=== PATIENT | female | born 1975 | race Caucasian/White ===

== ENCOUNTER → 2019-11-27 10:17 | Outpatient (CLI) | payer OTHER, SELFPAY ==
[2019-11-28 09:33] LABS: COVID19 Sendout Not Detected (Not Detect)
== END ==
PROVIDERS: Visit Provider Physician Assistant
DX: Z03.818 Encounter for observation for suspected exposure to other biological agents ruled out (principal)
CPT/HCPCS: 87635

== ENCOUNTER → 2020-12-03 18:50 | Outpatient (CLI) | payer OTHER, SELFPAY ==
[2020-12-03 19:13] LABS: COVID19 -Nasal RAPID Negative (Negative)
== END ==
PROVIDERS: Referring Provider Nurse Practitioner Family; Visit Provider Nurse Practitioner Family
DX: Z20.822 Contact with and (suspected) exposure to COVID-19 (principal)
CPT/HCPCS: 87635

== ENCOUNTER → 2021-04-14 16:29 | Outpatient (CLI) | payer OTHER, SELFPAY ==
--- NOTE | 2021-04-14 16:37 | DI.RAD.S_ITS ---
PROCEDURE: XR FEMUR RT MIN 2V INDICATIONS: Injury TECHNIQUE: 2 views of the femur were acquired. COMPARISON: None. FINDINGS: Bones: No fractures or dislocations. No suspicious bony lesions. Soft tissues: No suspicious soft tissue calcifications or masses. IMPRESSION: No acute fracture. No osseous lesion. If symptoms and/or clinical suspicion for pathology persist, further assessment with repeat, or advanced imaging (e.g., CT, MRI, or bone scan) may be helpful for further assessment. Dictated by: Jairo Lake M.D. on 04/14/2021 at 17:01 Approved by: Jairo Lake M.D. on 04/14/2021 at 17:01
--- NOTE | 2021-04-14 16:37 | DI.RAD.S_ITS ---
PROCEDURE: XR KNEE RT 3V INDICATIONS: Injury TECHNIQUE: 3 views of the knee were acquired. COMPARISON: None. FINDINGS: Bones: No fractures or dislocations. No suspicious bony lesions. Soft tissues: No joint effusion. No suspicious soft tissue calcifications. IMPRESSION: No acute fracture. No osseous lesion. If symptoms and/or clinical suspicion for pathology persist, further assessment with repeat, or advanced imaging (e.g., CT, MRI, or bone scan) may be helpful for further assessment. Dictated by: Jairo Lake M.D. on 04/14/2021 at 17:01 Approved by: Jairo Lake M.D. on 04/14/2021 at 17:02
--- NOTE | 2021-04-14 16:37 | DI.RAD.S_ITS ---
PROCEDURE: XR TIBIA FUBULA RT 2V INDICATIONS: Injury TECHNIQUE: 2 views of the tibia and fibula were acquired. COMPARISON: None. FINDINGS: Bones: No fractures or dislocations. No suspicious bony lesions. Soft tissues: No suspicious soft tissue calcifications or masses. IMPRESSION: No acute fracture. No osseous lesion. If symptoms and/or clinical suspicion for pathology persist, further assessment with repeat, or advanced imaging (e.g., CT, MRI, or bone scan) may be helpful for further assessment. Dictated by: Jairo Lake M.D. on 04/14/2021 at 17:01 Approved by: Jairo Lake M.D. on 04/14/2021 at 17:01
== END ==
PROVIDERS: Referring Provider Student in an Organized Health Care Education/Training Program; Visit Provider Student in an Organized Health Care Education/Training Program
DX: S89.91XA Unspecified injury of right lower leg, initial encounter (principal); X58.XXXA Exposure to other specified factors, initial encounter
CPT/HCPCS: 73552; 73562; 73590

== ENCOUNTER → 2021-11-27 13:08 | Outpatient (CLI) | payer OTHER, SELFPAY ==
[2021-11-27 15:17] LABS: Add Manual Diff / Slide Review NO; Basophils Absolute Auto 0 /uL (0-100); Basophils Percent Auto 0.4 % (0-2); Eosinophils Absolute Auto 100 /uL (0-450); Eosinophils Percent Auto 1.3 % (2-4); Hematocrit 37.5 % (36-46); Hemoglobin 12.9 g/dL (12.0-16.0); Lymphocytes Absolute Auto 2700 /uL (1100-4500); Lymphocytes Percent Auto 36.4 % (25-40); Mean Corpuscular HGB Conc 34.3 % (30-36); Mean Corpuscular Hemoglobin 29.2 PG (26-34); Mean Corpuscular Volume 85.1 fL (80-100); Monocytes Absolute Auto 500 /uL (0-900); Neutrophils Absolute Auto 4100 /uL (1500-7000); Neutrophils Percent Auto 54.9 % (50-75); Platelet Count 318 X10^3/uL (150-400); Red Blood Cell Count 4.41 X10^6/uL (4.0-5.2); Red Cell Distribution Width 12.4 % (11.6-14.8); White Blood Cell Count 7.4 X10^3/uL (4.5-11.0)
[2021-11-27 15:39] LABS: Blood Urea Nitrogen 12 mg/dL (7-17); Calcium 8.9 mg/dL (8.4-10.2); Carbon Dioxide 26 mmol/L (22-32); Chloride 101 mmol/L (98-107); Estimated Glomerular Filt Rate > 60 mL/min (>60); Glucose 95 mg/dL (70-100); HEMOLYSIS < 15 (0-50); Sodium 137 mmol/L (137-145)
== END ==
PROVIDERS: PCP Registered Nurse; Referring Provider Orthopaedic Surgery; Visit Provider Orthopaedic Surgery
DX: Z01.818 Encounter for other preprocedural examination (principal); Z01.812 Encounter for preprocedural laboratory examination; M25.561 Pain in right knee
CPT/HCPCS: 36415; 80048; 85025; 93005

== ENCOUNTER → 2021-12-07 09:30 | Outpatient (CLI) | payer OTHER, SELFPAY ==
[2021-12-07 10:37] LABS: COVID19 -Nasal RAPID Negative (Negative)
== END ==
PROVIDERS: PCP Family Medicine; Referring Provider Orthopaedic Surgery; Visit Provider Orthopaedic Surgery
DX: Z20.822 Contact with and (suspected) exposure to COVID-19 (principal)
CPT/HCPCS: 87635; C9803

== ENCOUNTER → 2021-12-11 13:47 | Outpatient (CLI) | payer OTHER, SELFPAY ==
[2021-12-11 14:48] LABS: COVID19 -Nasal RAPID Negative (Negative)
== END ==
PROVIDERS: PCP Family Medicine; Referring Provider Orthopaedic Surgery; Visit Provider Orthopaedic Surgery
DX: Z20.822 Contact with and (suspected) exposure to COVID-19 (principal)
CPT/HCPCS: 87635; C9803

== ENCOUNTER → 2021-12-23 14:09 | Outpatient (CLI) | payer OTHER, SELFPAY ==
[2021-12-23 14:50] LABS: COVID19 -Nasal RAPID Negative (Negative)
[2021-12-23 16:16] LABS: Free T3, Triiodothyronine Free 8.65 pg/mL (2.77-5.27); Free T4, Direct Thyroxine 2.58 ng/dL (0.78-2.19)
[2021-12-23 16:34] LABS: Thyroid Stimulating Hormone < 0.015 uIU/mL (0.47-4.68)
[2021-12-23 17:51] LABS: Follicle Stimulating Hormone 7.26 mIU/mL
[2021-12-29 21:48] LABS: Triiodothyronine T3 Reverse 35.8 ng/dL (9.2-24.1)
== END ==
PROVIDERS: Obstetrics & Gynecology; PCP Family Medicine; Referring Provider Orthopaedic Surgery; Visit Provider Orthopaedic Surgery
DX: E05.90 Thyrotoxicosis, unspecified without thyrotoxic crisis or storm (principal); N92.6 Irregular menstruation, unspecified; Z20.822 Contact with and (suspected) exposure to COVID-19
CPT/HCPCS: 36415; 83001; 84439; 84443; 84481; 84482; 87635; C9803

== ENCOUNTER 2021-12-24 12:57 | Day surgery (SDC) | payer OTHER, SELFPAY ==
[2021-12-23 07:29] VITALS: BMI 38.3
[2021-12-24] VITALS (14 sets, daily range): BP systolic 93–143; BP diastolic 38–95; PULSE 71–791; RESP 11–98; TEMP 36.2–37.1; O2SAT 2–98; BMI 37.5
--- NOTE | 2021-12-24 13:11 | DI.RAD.S_ITS ---
PROCEDURE: XR KNEE RT 1TO2V INDICATIONS: prosthesis placement TECHNIQUE: 2 view(s) of the knee acquired. COMPARISON: [facility], , XR KNEE RT 3V, 04/14/2021, 16:30. FINDINGS: Bones: Patient is status post knee joint arthroplasty. Hardware components are in expected positions. Visualized bony structures are intact. Soft tissues: Overlying postoperative changes are noted. IMPRESSION: Knee arthroplasty as above Dictated by: Juani Pearl M.D. on 12/25/2021 at 13:42 Approved by: Juani Pearl M.D. on 12/25/2021 at 13:42
[2021-12-24] MEDS: LACTATED RINGERS 1,000 ML 42 ML IV ×2 (13:51→17:05)
[2021-12-24] MEDS: ACETAMINOPHEN 325 MG TABLET 975 MG PO (14:15)
[2021-12-24] MEDS: PREGABALIN 75 MG CAPSULE PO (14:17)
[2021-12-24] MEDS: CELECOXIB 200 MG CAPSULE PO (14:17)
--- NOTE | 2021-12-24 15:53 | PM.PREOP ---
Pre-operative Note COVID-19 COVID-19 status: Negative Result date/Date tested (Pos, Neg/Pending): 12/23/21 Interval Note History & Physical reviewed/Exam performed by Physician: Yes Changes to H&P: No
[2021-12-24] MEDS: CEFAZOLIN 2 GM/100 ML PREMIX 100 ML IV ×2 (16:40→20:48)
[2021-12-24] MEDS: TRANEXAMIC ACID 1,000 MG VIAL 1000 MG INJ ×2 (16:47→17:45)
--- NOTE | 2021-12-24 16:56 | SUR.OPER ---
Supine on padded OR bed, head on pillow, arms secured on padded arm boards at <90 degrees abduction, legs uncrossed, tape over blanket over lower left leg, right leg secured in DeMayo leg nunez
[2021-12-24] MEDS: MORPHINE 4 MG/ML INJ INJ (17:08)
[2021-12-24] MEDS: BUPIVACAINE 0.25% (PF) 60 ML, EPINEPHrine 0.3 MG INJ (17:11)
[2021-12-24] MEDS: BUPIVACAINE LIPOSOME 266 MG/20 ML VIAL INJ (17:11)
--- NOTE | 2021-12-24 18:08 | PM.OP.1 ---
Operative Date/Time/Diagnoses Date of procedure: 12/24/21 Time of procedure: 18:08 Pre-op diagnosis: Right knee osteoarthritis Post-op diagnosis: same Procedure & Clinicians Procedure: Right total knee replacement Same procedure as scheduled: Yes Indications: The patient has had progressively worsening right knee pain with radiographic changes consistent with arthritis. Non-operative management has failed and the patient has requested total knee replacement. The risks, benefits and alternatives to surgery were discussed with the patient prior to proceeding. Risks discussed included, but were not limited to, failure to relieve pain, stiffness, infection, nerve damage, deep venous thrombosis, pulmonary embolism, stroke, coma, heart attack, permanent paralysis and , as well as the potential need for eventual revision of the prosthetic. Surgeon: Anatoliy Renee Director Of Securities And Real Estate: Savita Reynoso Yes if Unassisted: No Anesthesia Type: General and Local Operative Notes Findings: Significant medial and patellofemoral osteoarthritis. Closure Type: primary Specimen(s): none sent Prosthetic devices, grafts, tissues, transplants, or devices: Implants used in this procedure were manufactured by the [employer] and included the BCS II Journey total knee replacement with a size 6 Oxinium femoral component, a size 5 right non porous tibial base plate, an 11 mm cross-linked polyethylene tibial insert and a 32 mm oval Yulissa II patella. Applied: implant(s) Estimated Blood Loss (mL): 50 Blood products transfused: none Tourniquet time (min): 50 Procedure in detail: The patient was seen in the pre-operative area, where the patient identified the right knee as the operative site and this was marked with my initials. The patient received pre-operative antibiotics, and was taken to the operating room and placed on the operative table in the supine position. After satisfactory anesthesia, a daytime babysitter out was performed. The right leg was encircled with a tourniquet about the proximal thigh, and the leg was prepared from the toes to the tourniquet with ChloroPrep in the usual fashion and draped through sterile drapes. The leg was elevated and exsanguinated with Eschmark bandage and the tourniquet inflated to 250 mmHg pressure. The knee was approached through an approximately 18 cm incision centered over the patella and carried into the knee through a medial parapatellar arthrotomy. The anterior osteophytes and soft tissues were removed. The rotational landmarks of [place]'s line and the transepicondylar axis were marked on the femur with electrocautery, and intramedullary guide holes for the femur and tibia were created. The distal femoral cut was made in 6 degrees of valgus using the intramedullary guide at the primary cut setting. The proximal tibial cut was then made using the intramedullary guide, taking 9 mm of bone off the less involved side. The extension gap was checked and the rotation of the femoral component confirmed with the gap balancing system. The anterior, posterior and chamfer cuts were then made. The posterior osteophytes and soft tissues were then removed. The posterior capsule was injected with part of a mixture of 60 ml 0.25% Marcaine mixed with 20 ml Exparel and 4 mg of morphine for post-operative pain control. The remainder of this mixture was injected into the capsule and subcutaneous tissues during cement curing. The tibia was prepared with the rotation set by an extra medullary guide. Trial tibial and femoral components were then placed and the intercondylar notch cut through the femoral trial. Range of motion was 0-135 degrees, with good stability throughout the range. The patella was then cut to accommodate the patellar prosthetic. There was a tendency for lateral patellar tracking so a ?pie crust? lateral release was performed. The trials were then removed, and the femoral hole plugged with a bone plug. The bone was prepared with pulsatile lavage, and dried with a sponge. Cement was applied and the final prosthetics placed. Excess cement was removed during and after cement curing. After confirming there was no extruded cement posteriorly, the final tibial insert was placed. The knee was copiously irrigated and the tourniquet deflated. Hemostasis was obtained. The capsule was closed with interrupted # 2 polyester suture. The subcutaneous layer was closed with 3-0 Vicryl, and the skin with a running 3-0 V-Lock suture and Dermabond. An Aquacel Ag dressing was applied and the patient was taken to recovery having tolerated the procedure well. A skilled research program assistant was required during this procedure for positioning of the leg and retraction to allow appropriate visualization for expeditious and safe surgery. Without the assistance of Ms. Jimenez this surgery could not have been accomplished quickly and safely. Complications: none Post-operative Condition: stable Disposition: PACU Plan for aftercare: The patient will be maintained on a standard total knee replacement protocol with weight bearing as tolerated. The patient will receive aspirin and sequential compression devices for DVT prophylaxis. The patient will be discharged home when safe for the home environment.
[2021-12-24] MEDS: ONDANSETRON 4 MG/2 ML INJ 8 MG (18:35)
[2021-12-24] MEDS: HYDROMORPHONE 2 MG INJ IV ×7 (18:40→19:00)
[2021-12-24] MEDS: KETOROLAC 30 MG/ML VIAL IV (18:48)
[2021-12-24] MEDS: hydrOXYzine 50 MG/ML INJ 25 MG IM (18:54)
[2021-12-24] MEDS: OXYCODONE IR 5 MG TABLET PO ×3 (18:55→22:48)
[2021-12-24] MEDS: LORazepam 2 MG/ML INJ (19:04)
[2021-12-24] MEDS: MORPHINE 10 MG/ML INJ 4 MG IV ×2 (19:09→19:28)
--- NOTE | 2021-12-24 19:48 | SUR.PHASEI ---
Called Dr Renee at request of patient who is requesting a Morphine NET COORDINATOR. Dr Renee states he will not order a NET COORDINATOR but patient can have Ativan IV if needed to assist with pain and anxiety.
[2021-12-24] MEDS: MORPHINE 4 MG/ML INJ IV (20:19)
[2021-12-24] MEDS: LACTATED RINGERS 1,000 ML 100 ML IV (20:35)
[2021-12-24] MEDS: ASPIRIN EC 81 MG TABLET PO (20:43)
[2021-12-24] MEDS: IBUPROFEN 400 MG TABLET PO (20:45)
[2021-12-24] MEDS: DOCUSATE 100 MG CAPSULE PO (21:40)
--- NOTE | 2021-12-24 22:28 | PC.NURSE ---
2000 Pt. admitted from PACU accompanied by her spouse. C/O pain 11/07 medicated with 4 mg. of Morphine IVP. Oriented to her room & encouraged to call for assistance when she needed to get OOB. Will monitor & cont. POC.
[2021-12-25] MEDS: IBUPROFEN 400 MG TABLET PO ×4 (00:23→12:29)
[2021-12-25] MEDS: ACETAMINOPHEN 325 MG TABLET 650 MG PO ×3 (00:23→12:29)
[2021-12-25 01:30] VITALS: BP 133/68; PULSE 79; RESP 20; TEMP 36.1; O2SAT 98
[2021-12-25] MEDS: SODIUM CHLORIDE 0.9% FLUSH 10 ML IV ×2 (02:00→05:15)
[2021-12-25] MEDS: LORazepam 2 MG/ML INJ 0.5 MG IV (02:00)
[2021-12-25] MEDS: OXYCODONE IR 5 MG TABLET PO ×2 (02:00→05:30)
[2021-12-25] MEDS: CEFAZOLIN 2 GM/100 ML PREMIX 100 ML IV (05:15)
--- NOTE | 2021-12-25 06:30 | PC.NURSE ---
0030 Pt. C/O not able to flex her right foot. RLE still numb Geetha SURESH & coordinator Nia Segura reduced her dressing to just an aquacel dressing. Up to BSC 4x's this shift not bearing any weight to her RLE. Will cont. POC & monitor.
[2021-12-25 07:05] LABS: Hematocrit 34.8 % (36-46); Hemoglobin 12.1 g/dL (12.0-16.0)
--- NOTE | 2021-12-25 07:42 | P.DS_ITS ---
History of Present Illness History of Present Illness Date Patient Seen: 12/25/21 Time Patient Seen: 07:42 Chief complaint: OPB Narrative: The history and physical is contained in the chart previously completed note. Please refer to that note for this information. Discharge Providers Provider Date of admission: December 24, 2021 Discharge Date: 12/25/21 Primary care physician: Beverly Fleming DO Consults: 12/24/21 20:08 Consult to Discharge Planning Routine Comment: Consult to Physical Therapy Evaluate & Treat Comment: Physician Instructions: postop TKA protocol Discharge provider: Anatoliy Renee MD Summary Hospital Course Discharge Diagnosis: 1. Right knee osteoarthritis 2. Post hemorrhagic anemia 3. Transient peroneal neuropathy Hospital Course: The patient was admitted to the hospital and taken directly to the operating room on December 24, 2021 where she underwent a right total knee replacement. Surgery proceeded without difficulty. Postoperatively she had significant pain control issues and underwent the placement of a femoral nerve block. She also had extensive use of local anesthetic around the knee during surgery. On postoperative day 1 she had become comfortable but did note a footdrop. She had a mild post hemorrhagic anemia. At the time of this dictation she has not had physical therapy. Status at Discharge Cognitive/behavioral status at discharge: at baseline, oriented Functional status at discharge: uses cane/walker Overall status at discharge: patient is progressing back to baseline Time Spent with Patient Time spent: Less than 30 minutes Exam Vital Signs (past 8 hours): - 12/25/21 01:30 Temperature 97.0 F L Pulse Rate 79 Respiratory Rate 20 Blood Pressure 133/68 Pulse Oximetry 98 Oxygen Flow Rate 0 Oxygen Delivery Method Nasal Cannula Oxygen Flow Rate 0 Narrative Exam Narrative: Right knee wound is dressed with no drainage on the bandage. Calf is soft. Light touch is intact in the superficial and deep peroneal nerve distribution as well as the tibial nerve distribution. She can dorsiflex and plantar flex her toes but can not dorsiflex her ankle on the right. Objective Labs Result Diagrams: 12/25/21 06:50 Labs: Laboratory Results - last 24 hr 12/25/21 06:50 Hgb 12.1 Hct 34.8 L PFSH Medical History No significant past medical history Surgical History History of 2 sections Social History household members: spouse and children Smoking Status: Never smoker alcohol intake: current Discharge Assessment & Plan Assessment and Plan Assessment: She is stable postoperative day 1 status post right total knee replacement. Either some of the local anesthetic or the block appears to have given her a transient peroneal neuropathy. This should improve as the anesthetic wears off. That may take up to 36 hours if it is the Exparel causing the issue. She has a mild post hemorrhagic anemia. Plan of Treatment: Physical therapy this morning. Provided she is able to safely ambulate to the bathroom and make a short flight of stairs she can go home today. Discharge orders have been written. Follow up in my office in 10-14 days. Discharge prescriptions for oxycodone, hydroxyzine and lorazepam have been sent to the pharmacy. In addition she has been instructed in the use of ibuprofen and Tylenol for pain control and the use of low-dose aspirin for DVT prophylaxis. Discharge Plan Discharge Plan Patient Disposition: Home Discharge orders & Medications Discharge Orders: Discharge (Order); Ordered 12/25/21 Ordered By: Anatoliy Renee Prescriptions: New acetaminophen 325 mg Tablet 650 mg PO Q6HR Qty: 100 0RF aspirin 81 mg Tablet,Delayed Release (Dr/Ec) 81 mg PO BID Qty: 84 0RF ibuprofen 400 mg Tablet 400 mg PO Q4HR Qty: 100 0RF oxycodone 5 mg Tablet 5 mg PO Q4H PRN (Reason: Pain, Moderate (4-6)) Qty: 40 0RF hydroxyzine pamoate 25 mg Capsule 25 mg PO Q6H PRN (Reason: Nausea And Vomiting) Qty: 30 0RF lorazepam 0.5 mg Tablet 0.5 mg PO Q6HR PRN (Reason: Anxiety) Qty: 20 0RF Discontinued naproxen sodium 220 mg Tablet 440 mg PO BID PRN (Reason: Pain) Follow up/Referrals: Anatoliy Renee MD [Physician] - As previously scheduled (Follow up with Gela Friedman PA-C, on 01/05/2022 @ 4:10 pm at [facility], Located [facility] office in [place].) Beverly Fleming DO [Primary Care Provider] - Diet/Activity/Treatments Diet: Diet as Tolerated and Regular Activity: Walk frequently! Cold/Heat Therapy: Ice to knee as needed for pain. Skin/Wound/Dressing Care Report to your healthcare provider any signs of infection, such as:: chills, fever, night sweats, unusual drainage and unusual redness Dressing: May remove ELIEZER wrap and shower on 12/27/2021. Leave Aquacel dressing in place until follow up in office. No bathing or otherwise soaking incision. If the central slip of the dressing becomes saturated with either water or blood, please call the office. Visit Report/Discharge Packet Instructions: DI for Knee Replacement, DI for Constipation, How to Prevent Falls, How to Apply an Eliezer Wrap Stand Alone Forms: Surgery Discharge Discharge Data Primary Care Provider: Beverly Fleming Attending Provider: Anatoliy Renee VTE Deep Vein Thrombosis/Pulmonary Embolism Present on Admission: No
[2021-12-25 08:05] VITALS: BP 127/73; PULSE 90; RESP 18; TEMP 36.6; O2SAT 97
[2021-12-25] MEDS: ASPIRIN EC 81 MG TABLET PO (09:28)
[2021-12-25] MEDS: hydrOXYzine pamoate 25 MG CAPSULE PO (09:28)
[2021-12-25] MEDS: DOCUSATE 100 MG CAPSULE PO (09:28)
[2021-12-25] MEDS: OXYCODONE IR 10 MG TABLET PO ×2 (09:34→14:14)
--- NOTE | 2021-12-25 10:50 | PT.IIE ---
Current Diagnoses Unilateral primary osteoarthritis, right knee (12/24/21) Surgery Performed Operation Date: 12/24/21 15:00 Actual Procedures p Total Knee Arthroplasty(Right) - Anatoliy eRnee MD Surgical History (Last Reviewed 12/24/21 @ 13:24 by Lucina Granger, RN) History of 2 sections Medical History (Last Reviewed 12/24/21 @ 13:24 by Lucina Granger, KERWIN) No significant past medical history Physical Therapy Inpatient Evaluation/Re-Eval M1 PT/OT-IP Prior Functional Status Start: 12/25/21 13:42 Freq: NEEDED Status: Active Protocol: Document 12/25/21 10:50 AB (Rec: 12/25/21 13:53 AB [id number]) Medical Review Prior Functional Status Medical History Reviewed Yes Communication able to make needs known Mobility and Gait pt stated that she is independent with all mobilities and ambulation withotu AD Social History Household Members spouse,children Living Arrangements House Number of Floors (Floors) Two Floors Number of Stairs To Enter/Railing? 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 Additional Social History Comment pt works as an OB nurse/ center M2 PT-IP Current Condition Start: 12/25/21 13:42 Freq: NEEDED Status: Active Protocol: Document 12/25/21 10:50 AB (Rec: 12/25/21 13:53 AB [id number]) Physical Therapy Current Condition Current Condition Evaluation Date 12/25/21 Treatment Diagnosis s/p R TKA; difficulty in walking Onset Date 12/24/21 M3 PT-IP Subjective Start: 12/25/21 13:42 Freq: NEEDED Status: Active Protocol: Document 12/25/21 10:50 AB (Rec: 12/25/21 13:53 AB [id number]) Subjective Physical Therapy Visit Type Type Initial Evaluation Visit Start Time 10:50 Visit Stop Time 11:31 Total Visit Minutes 41 Number of SENIOR SOUS CHEF Visits 0 Physical Therapy Visit Comments Patient Comments agreeable to do PT Therapy Pain Assessment Pain When Pain Assessed At Rest Pain Present Pain Present Pain Reported Location right knee Intensity 3 Scale Used Numeric (0 - 10) Pain Management Techniques Apply Cold,Distraction, Elevation,Modification of Treatment,Re-positioning, Timing of Activity with Medications M4 PT-IP Mobility and Gait Start: 12/25/21 13:42 Freq: NEEDED Status: Active Protocol: Document 12/25/21 10:50 AB (Rec: 12/25/21 13:53 AB [id number]) PT-Bed Mobility Assessment Supine to Sit Supine to Sit Standby Assistance Sit to Supine Sit to Supine Standby Assistance PT-Transfer Assessment Sit to and From Stand Sit to and from Stand Standby Assistance,1 Person Assistance,Use of Upper Extremities Equipment Transfer Assistive Device Gait Belt,Front Wheeled Walker Orthotic/Prosthetic Devices or Brace: No Comments Mobility Comments pt c/o RLE numbness but able to move RLE. pt completed supine to sit SBA. refused use of safety belt despite education. completed sit to stand SBA and ambulated in the hallway using FWW SBA ~ 200 ft. educated on stair climbing and pt completed holding on to rail with B hands SBA to CGA. pt ambulated back to her room SBA using FWW and went back to bed. SBA for sit to supine. positioned in bed. call light and table placed within reach. Gait Assessment Gait Gait Assistance Required: Standby Assistance Distance (Feet) 200 Able to Maintain Weight Bearing Status Yes During Gait Assistive Devices Assistive Device Gait Belt,Front Wheeled Walker Orthotic/Prosthetic Devices or Brace: No Gait Deviations General Gait Pattern Antalgic,Decreased Stride Length,Decreased Feet Clearance,Step-to Gait Factors Limiting Gait Function Factors Limiting Gait Function Decreased Activity Tolerance, Decreased Strength,Difficulty Following Directions,Limited Range of Motion,Pain,Poor Balance,Poor Safety Awareness Stair Climbing Assessment Evaluation Level of Assist On Stairs Standby Assistance,Contact Guard Assistance Devices Stair Climbing Assistive Devices Right Railing Technique/Endurance Stair Climbing Direction Ascend and Descend Stair Climbing Technique Step to Step Number of Steps Climbed 3 Query Text: Stair Climbing Set # Repetitions (reps) 1 PT-Balance Assessment Sitting Balance and Reactions Static Sitting Balance Ability Good Dynamic Sitting Balance Ability Good Standing Balance and Reactions Static Standing Balance Ability Fair Dynamic Standing Balance Ability Fair Device Used FWW M5 PT-IP Objective Assessments Start: 12/25/21 13:42 Freq: NEEDED Status: Active Protocol: Document 12/25/21 10:50 AB (Rec: 12/25/21 13:53 AB [email or web address]) Orientation Orientation/Cognition Level of Alertness Alert Orientation Name,Age,Situation Language Function Ability No Deficits Noted Safety Awareness Understands Safety Issues Memory Description No Deficits Noted Gross Range of Motion Lower Extremity ROM Assessment Right Impaired Impairments R knee flexion: ~ 50 deg Strength Lower Extremity Strength Assessment Right Impaired Hip 3+/5 Knee 4-/5 Ankle 2-/5: c/o numbness Coordination Assessment Gross Coordination Gross Coordination WNL Sensation Assessment Sensation Sensation Description Numbness Comments Sensation Comments RLE numbness Muscle Tone Muscle Tone WNL Yes M6 PT-IP Treatment Start: 12/25/21 13:42 Freq: NEEDED Status: Active Protocol: Document 12/25/21 10:50 AB (Rec: 12/25/21 13:53 AB [email or web address]) Physical Therapy Treatment Exercises Exercises Heel Slides Education Education Provided Precautions,Weight Bearing Status,Post-Op Packet,Safety M7 PT-IP Assessment and Plan Start: 12/25/21 13:42 Freq: NEEDED Status: Active Protocol: Document 12/25/21 10:50 AB (Rec: 12/25/21 13:53 AB [email or web address]) PT Summary Assessment and Plan Potential Rehabilitation Potential Fair Status of Condition at Evaluation Evolving Summary Impairments Pain,ROM,Strength,Balance, Coordination,Sensation,Tone, Cognition,Bed Mobility, Transfers,Gait,Activity Tolerance Assessment Summary pt requiring SBA to CGA with mobility but still c/o RLE numbness affecting mobility. pt plans to go home and spouse to assist. pt may go home when medically stable. Goals Bed Mobility Goal Independent Transfer Goal Independent,Front Wheeled Walker Gait Goal Independent,Front Wheel Walker Gait Distance 250 Other Goals up/down 5 steps R rail ascending mod I Days to Meet Goals 5 Frequency of Treatment Frequency Of Treatment Twice a Day Treatment Plan Physical Therapy Treatment Plan Bed Mobility Training,Transfer Training,Gait Training, Therapeutic Exercise,Balance Retraining,Post Op Education, Discharge Planning,Hot or Cold Pack,Neuromuscular Re-ed, Coordination Retraining,Manual Therapy Weight Bearing Status Weight Bearing Status Weight Bear as Tolerated Allowed Weight Bearing Amount (enter % RLE WBAT or #) (%) Recommendations To Nursing Amount of Assist Needed 1 Person Assist Discharge Recommendations PT Discharge Recommendations Home with Assistance, Outpatient PT Transportation Needs at Discharge Private Vehicle
[2021-12-25 12:18] VITALS: BP 123/66; PULSE 87; RESP 16; TEMP 36.7; O2SAT 95
[2021-12-25] MEDS: LORazepam 0.5 MG TABLET PO (12:30)
--- NOTE | 2021-12-25 13:17 | CM.DANOTE ---
Initial DCP Assessment Note Pt is a 46 yo female, resident of [place], now POD#1 from Rt knee surgery by Dr Renee PCP: Beverly Fleming Payer: Dawna Reviewed chart, pt discussed in multidisciplinary rounds this morning. Therapy has cleared pt for return home w/family to assist and pt has planned for home, DC order from Ortho has already been initiated this morning. 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 JENELLE Rowe Discharge Planning/Care Management CM Discharge Assessment Start: 12/25/21 13:15 Freq: Status: Active Protocol: Document 12/25/21 13:15 RICHARD (Rec: 12/25/21 13:17 RICHARD [id number]) Discharge Planning Assessment Assigned Tax Consultant JENELLE Villatoro DPOA/Assigned Designee Name Reji Wakefield, spouse Contact Information [phone] Advance Directives? No Advance Directives on File No History Provided By Patient,Family Member Prior Living Arrangements House Household Members spouse,children Type of transporation used prior to Drives own vehicle admit Independent with ADL's Yes Is patient alert and oriented? Yes Patient/Family Preference OP PT Therapy Barriers to Discharge No Discharge Plan Home Transportation Arrangement Spouse Referrals Initiated None needed
--- NOTE | 2021-12-25 14:45 | PT-IP ANOTE ---
Attempted to see pt at 14:45, pt states she has no further needs and feels ready to go home w/ assisting.
--- NOTE | 2021-12-25 15:36 | PC.NURSE ---
Discharge: Pt feels ready to d/c to home. Seen by PA and discharge instructions given. Seen by PT and they gave final d/c instructions. Pt reports po pain meds effective. Tolerates diet. Vds w/out diff. Is following her total knee precautions. Discharge packet given by Arun SURESH. Spouse here at time of teaching. Questions answered. Pt d/c to home w/out voicing any concerns.
== END 2021-12-25 15:30 | disposition home or self-care (01) ==
LOC: OR 12:58 → AC 15:10
PROVIDERS: PCP Family Medicine; Referring Provider Orthopaedic Surgery; Visit Provider Orthopaedic Surgery
PROC: 0SRC0JZ Replacement of Right Knee Joint with Synthetic Substitute, Open Approach (ICD-10-PCS; CPT 27447; principal; 2021-12-24 15:00)
DX: M17.11 Unilateral primary osteoarthritis, right knee (principal); D50.0 Iron deficiency anemia secondary to blood loss (chronic); G62.89 Other specified polyneuropathies
CPT/HCPCS: 27447; 36415; 73560; 81025; 85014; 85018; 97116; 97162; C1776; C1713; C9290; J0171; J0690; J1170; J1885; J2060; J2250; J2270; J2274; J2405; J2704; J3010; J3410

== ENCOUNTER → 2022-05-13 13:52 | Outpatient (CLI) | payer OTHER, SELFPAY ==
[2021-12-24 15:19] VITALS: BMI 37.5
--- NOTE | 2022-05-13 13:55 | DI.US.S_ITS ---
PROCEDURE: US PELVIC COMPLETE INDICATIONS: menorrhagia TECHNIQUE: Real-time scanning was performed of the pelvic organs, with image documentation. Additional endovaginal scanning was necessary due to incomplete visualization of the adnexal and endometrial structures by transabdominal scanning. COMPARISON: None. FINDINGS: Uterus: Uterus is anteverted and normal in size at 8.4 x 3.8 x 5.3 cm. The myometrium is slightly heterogeneous, and contains a 3 mm myometrial cyst. The endometrium measures 4 mm combined thickness. Ovaries: The right ovary measures 2.7 x 1.9 x 1.7 cm, with a calculated ovarian volume of 5.1 cc. The left ovary is not visualized due to overlying bowel gas. The ovaries have a normal sonographic appearance. No adnexal masses are seen. Other: No pathologic free abdominal or pelvic fluid. IMPRESSION: Right ovary not visualized, otherwise unremarkable pelvic ultrasound. We strive to produce accurate, complete, and clear reports of imaging services. To assist us in improving patient care, this report was composed using standard report templates and voice recognition software. Therefore, it may contain abnormal punctuation, insertions and/or omissions. Occasional wrong-word or sound-alike substitutions may occur. Though we review the report and make efforts to correct it, we do recommend that the report be read carefully in proper context to recognize any text inaccuracies. Dictated by: Shawn Daniels M.D. on 05/13/2022 at 15:47 Approved by: Shawn Daniels M.D. on 05/13/2022 at 15:49
--- NOTE | 2022-05-13 13:55 | DI.US.S_ITS ---
ULTRASOUND OF RIGHT BREAST: 05/13/2022 CLINICAL: Palpable right axilla lump. Comparison is made to exams dated: 05/13/2022 mammogram - [facility], 08/02/2018 mammogram, and 03/14/2017 mammogram - outside facility. Doppler ultrasound of the right breast was performed. Cisneros scale images of the real-time examination were reviewed. No abnormality which corresponds with the palpable abnormality is seen. IMPRESSION: NEGATIVE There is no sonographic evidence of malignancy. There is no abnormality seen in the right breast to correspond with the area of clinical concern, palpable abnormality, and pain in the axilla, however, clinical followup is recommended. Return to annual mammogram screening schedule is recommended. This exam was interpreted at Station ID: [id number]. Electronically Signed By: Sanjeev Ravi M.D. acr/:05/13/2022 15:56:40 letter sent: Clinical Evaluation Ultrasound BI-RADS: 1 Negative
--- NOTE | 2022-05-13 13:55 | DI.MG.S_ITS ---
BILATERAL DIGITAL DIAGNOSTIC MAMMOGRAM 3D/2D: 05/13/2022 CLINICAL: Right axillary pain. Comparison is made to exams dated: 08/02/2018 mammogram, 03/14/2017 mammogram, and 06/07/2014 mammogram - outside facility. Both breasts are heterogeneously dense, which may obscure small masses (category c / 51-75% glandular tissue). No significant masses, calcifications, or other findings are seen in either breast. There has been no significant interval change. IMPRESSION: INCOMPLETE: NEEDS ADDITIONAL IMAGING EVALUATION There is no abnormality seen in the right breast to correspond with the area of clinical concern and pain, however, ultrasound is recommended. US will be performed and dictated separately. Based on the Tyrer Cuzick model (a risk assessment model) the patient's lifetime risk is 10.8% and her 10 year risk is 2.2%. According to the ACR, ACS, and NCCN guidelines, an annual breast MRI exam along with mammogram is recommended if the patient's lifetime risk is 20% or greater. This exam was interpreted at Station ID: [id number]. NOTE: For mammograms, a report in lay terms will be sent to the patient. Approximately 15% of breast malignancies will not be visualized mammographically. In the management of a palpable breast mass, a negative mammogram must not discourage biopsy of a clinically suspicious lesion. Electronically Signed By: Sanjeev Ravi M.D. acr/:05/13/2022 15:54:31 ACR BI-RADS Category 0: Incomplete [id number]
== END ==
PROVIDERS: Family Provider Internal Medicine; PCP Internal Medicine; Referring Provider Obstetrics & Gynecology; Visit Provider Internal Medicine
DX: R92.2 Inconclusive mammogram (principal); N63.10 Unspecified lump in the right breast, unspecified quadrant; N64.4 Mastodynia; N92.0 Excessive and frequent menstruation with regular cycle
CPT/HCPCS: 76830; 76856; 76882; 77066; G0279

== ENCOUNTER → 2022-07-06 17:07 | Outpatient (CLI) | payer OTHER, SELFPAY ==
[2021-12-24 15:19] VITALS: BMI 37.5
[2022-07-06 17:37] LABS: Add Manual Diff / Slide Review NO; Basophils Absolute Auto 0 /uL (0-100); Basophils Percent Auto 0.6 % (0-2); Eosinophils Absolute Auto 200 /uL (0-450); Eosinophils Percent Auto 2.8 % (2-4); Hematocrit 36.5 % (36-46); Hemoglobin 12.9 g/dL (12.0-16.0); Lymphocytes Absolute Auto 2900 /uL (1100-4500); Lymphocytes Percent Auto 38.9 % (25-40); Mean Corpuscular HGB Conc 35.3 % (30-36); Mean Corpuscular Hemoglobin 30.4 PG (26-34); Mean Corpuscular Volume 86.2 fL (80-100); Monocytes Absolute Auto 600 /uL (0-900); Monocytes Percent Auto 8.2 % (3-14); Neutrophils Absolute Auto 3700 /uL (1500-7000); Neutrophils Percent Auto 49.5 % (50-75); Platelet Count 314 X10^3/uL (150-400); Red Blood Cell Count 4.23 X10^6/uL (4.0-5.2); Red Cell Distribution Width 12.6 % (11.6-14.8); White Blood Cell Count 7.5 X10^3/uL (4.5-11.0)
[2022-07-06 17:53] LABS: C-Reactive Protein Quant 1.3 mg/dL (<1.0)
[2022-07-06 18:09] LABS: Erythrocyte Sedimentation Rate 18 MM/HR (0-20)
== END ==
PROVIDERS: Family Provider Internal Medicine; PCP Internal Medicine; Referring Provider Orthopaedic Surgery; Visit Provider Orthopaedic Surgery
DX: Z96.651 Presence of right artificial knee joint (principal)
CPT/HCPCS: 36415; 85025; 85651; 86140

== ENCOUNTER → 2022-09-01 07:29 | Outpatient (CLI) | payer OTHER, SELFPAY ==
[2021-12-24 15:19] VITALS: BMI 37.5
[2022-09-01 08:54] LABS: Glucose 111 mg/dL (70-100)
[2022-09-01 09:16] LABS: Free T4, Direct Thyroxine 1.76 ng/dL (0.78-2.19)
[2022-09-01 09:33] LABS: Thyroid Stimulating Hormone < 0.015 uIU/mL (0.47-4.68)
[2022-09-03 06:36] LABS: Insulin Level Total 18.3 uIU/mL (2.6-24.9)
== END ==
PROVIDERS: Family Provider Internal Medicine; PCP Internal Medicine; Referring Provider Obstetrics & Gynecology; Visit Provider Obstetrics & Gynecology
DX: E05.90 Thyrotoxicosis, unspecified without thyrotoxic crisis or storm (principal); E88.81 Metabolic syndrome and other insulin resistance
CPT/HCPCS: 36415; 82947; 83525; 84439; 84443

== ENCOUNTER → 2022-09-02 10:57 | Outpatient (CLI) | payer OTHER, SELFPAY ==
[2021-12-24 15:19] VITALS: BMI 37.5
[2022-09-03 06:35] LABS: Labcorp Hemoglobin (Hb) A1c 5.1 % (4.8-5.6)
== END ==
PROVIDERS: Family Provider Internal Medicine; PCP Internal Medicine; Referring Provider Obstetrics & Gynecology; Visit Provider Obstetrics & Gynecology
DX: E88.81 Metabolic syndrome and other insulin resistance (principal)
CPT/HCPCS: 36415; 83036

== ENCOUNTER → 2023-01-26 11:17 | Outpatient (CLI) | payer SELFPAY ==
[2021-12-24 15:19] VITALS: BMI 37.5
== END ==
PROVIDERS: Family Provider Internal Medicine; PCP Internal Medicine; Referring Provider Family Medicine; Visit Provider Family Medicine
DX: Z23 Encounter for immunization (principal)
CPT/HCPCS: 90471; 90686

== ENCOUNTER → 2023-09-14 13:03 | Outpatient (CLI) | payer BC, SELFPAY ==
[2021-12-24 15:19] VITALS: BMI 37.5
[2023-09-14 14:43] LABS: Add Manual Diff / Slide Review NO; Basophils Absolute Auto 0 /uL (0-100); Basophils Percent Auto 0.6 % (0-2); Eosinophils Absolute Auto 300 /uL (0-450); Eosinophils Percent Auto 3.3 % (2-4); Hematocrit 39.8 % (36-46); Hemoglobin 13.6 g/dL (12.0-16.0); Lymphocytes Absolute Auto 3600 /uL (1100-4500); Lymphocytes Percent Auto 46.6 % (25-40); Mean Corpuscular HGB Conc 34.1 % (30-36); Mean Corpuscular Hemoglobin 29.5 PG (26-34); Mean Corpuscular Volume 86.7 fL (80-100); Monocytes Absolute Auto 600 /uL (0-900); Monocytes Percent Auto 7.7 % (3-14); Neutrophils Absolute Auto 3200 /uL (1500-7000); Neutrophils Percent Auto 41.8 % (50-75); Platelet Count 330 X10^3/uL (150-400); Red Blood Cell Count 4.59 X10^6/uL (4.0-5.2); Red Cell Distribution Width 12.5 % (11.6-14.8); White Blood Cell Count 7.7 X10^3/uL (4.5-11.0)
[2023-09-14 14:49] LABS: Alanine Aminotransferase 19 IU/L (<35); Albumin Globulin Ratio 1.1 (1.0-2.8); Alkaline Phosphatase 71 U/L (38-126); Aspartate Aminotransferase 23 IU/L (14-36); BUN Creatinine Ratio 12.3 (6-22); Bilirubin Total 0.4 mg/dL (0.2-1.3); Blood Urea Nitrogen 7 mg/dL (7-17); Calcium 9.1 mg/dL (8.4-10.2); Carbon Dioxide 24 mmol/L (22-32); Chloride 105 mmol/L (98-107); Cholesterol 158 mg/dL (140-199); Estimated Glomerular Filt Rate > 60 mL/min (>60); Globulin 3.5 g/dL (1.7-4.1); Glucose 112 mg/dL (70-100); HDL Cholesterol 64 mg/dL (40-60); HEMOLYSIS < 15 (0-50); Hemoglobin A1C% w Est Avg Glu 5.1 % (4.0-6.0); LDL Cholesterol Calculated 58 mg/dL (<100); Sodium 138 mmol/L (137-145); Total Protein 7.5 g/dL (6.3-8.2); Triglycerides 181 mg/dL (35-150)
[2023-09-14 15:35] LABS: Free T4, Direct Thyroxine 1.99 ng/dL (0.78-2.19)
[2023-09-14 15:59] LABS: Thyroid Stimulating Hormone < 0.015 uIU/mL (0.47-4.68)
[2023-09-14 19:29] LABS: Follicle Stimulating Hormone 36.7 mIU/mL; Luteinizing Hormone 22.5 mIU/mL
[2023-09-14 19:30] LABS: Vitamin D 25 Hydroxy (D3) 29.2 ng/mL (30.0-100.0)
[2023-09-15 07:37] LABS: Thyroid Peroxidase Antibodies 20 IU/mL (0-34)
[2023-09-15 16:12] LABS: Anti Thyroglobulin Antibody <1.0 IU/mL (0.0-0.9)
== END ==
PROVIDERS: Family Provider Internal Medicine; PCP Family Medicine; Referring Provider Family Medicine; Visit Provider Family Medicine
DX: Z00.00 Encounter for general adult medical examination without abnormal findings (principal); Z68.41 Body mass index [BMI] 40.0-44.9, adult
CPT/HCPCS: 36415; 80053; 80061; 82306; 83001; 83002; 83036; 84439; 84443; 84481; 85025; 86376; 86800